=== PATIENT | female | born 1985 | race Caucasian/White ===

== ENCOUNTER 2019-03-06 22:16 | Inpatient (IN) ==
[2019-03-06] MEDS ORDERED: *HR* LORazepam 1 MG TABLET PO PRN (23:38)
[2019-03-06] MEDS ORDERED: traZODone 50 MG TABLET PO PRN (23:38)
[2019-03-06] MEDS ORDERED: Mag Hydrox/Al Hydrox/Simeth 30 ML UDC PO PRN (23:38)
[2019-03-06] MEDS ORDERED: *HR* LORazepam 2 MG/ML VIAL IM PRN (23:38)
[2019-03-06] MEDS ORDERED: Acetaminophen 325 MG TABLET PO PRN (23:38)
[2019-03-06] MEDS ORDERED: Haloperidol Lactate 5 MG/ML VIAL IM PRN (23:38)
[2019-03-06] MEDS ORDERED: MOM Conc 10 ML UD.LIQ PO PRN (23:38)
[2019-03-07] MEDS: Nicotine 14 MG PATCH.TD24 TD SCH (08:44)
[2019-03-07] MEDS: BuPROPion XL (24 HR) 150 MG TABLET PO SCH (11:27)
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
[2019-03-07] MEDS: hydrOXYzine pamoate 25 MG CAPSULE PO PRN (20:45)
[2019-03-08] MEDS: Nicotine 14 MG PATCH.TD24 TD SCH (10:06)
[2019-03-08] MEDS: BuPROPion XL (24 HR) 150 MG TABLET PO SCH (10:06)
--- NOTE | 2019-03-08 14:01 | Psychiatry Progress Note ---
Date of Encounter: 03/08/19 Time of Encounter: 13:58 Subjective Interval history: Ms. De Los Santos was seen this afternoon. She reports that since her admission she is feeling so much better. She denies any further thoughts of suicide ideation. She states that her symptoms probably occurred 2 to not being able to sleep and working overnight the past 3 days, was having issues with her relationship with her boyfriend. She states Wellbutrin is helping her mood. Reports no side effects at this time. Is complaining of hair loss irritability which is likely secondary to her recent hysterectomy currently not on admission replacement therapy. Did give her smoking cessation counseling and informed her that estrogen replacement therapy should be initiated outpatient if she can can stop smoking as smoking and estrogen replacement therapy together can increase risk of blood clots and she is understanding. Reports that nicotine patches are very helpful at this time for her would like to continue with outpatient. She does have a PCP outpatient additionally has a psychiatrist referral to follow outpatient. 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 Review of Systems Constitutional: Denies: fever, chills, weakness Ears, Nose, Throat: Denies: congestion, dysphagia Cardiovascular: Denies: chest pain, palpitations, dyspnea on exertion Respiratory: Denies: cough, dyspnea, wheezes Gastrointestinal: Denies: abdominal pain, nausea, vomiting Integumentary: Denies: rash, lesions Psychiatric: Reports: depression. Denies: suicidal ideation, change in appetite, homicidal ideation Endocrine: Reports: other (Hair loss and irritability) Results - Vital Signs Vital Signs: Temp Pulse Resp BP Pulse Ox 97.6 F 75 18 117/80 98 03/08/19 09:00 03/08/19 09:00 03/08/19 09:00 03/08/19 09:00 03/08/19 09:00 - Labs Labs: Laboratory Results - last 24 hr 03/08/19 04:00 TSH 1.576 Assessment and Plan (1) Depression, major, recurrent, moderate Current visit: Yes Status: Acute Plan: Continue hospitalization, Encourage participation in unit milieu, Group Therapy, Monitor sleep, Monitor appetite Additional Plan: Continue hospitalization and at the time would be safe to discharge home tomorrow. Would benefit from ongoing close follow-up with psychiatrist outpatient. Continue Wellbutrin is helping her depressive symptoms. No longer having difficulty sleeping has a good appetite and oriented. Risks, benefits, side effects, alternatives discussed w/pt: Yes (She restarted her outpatient medication. Paxil on hold for now) Patient agreeable to treatment: Yes Consult Discharge Plan - Plan Referrals: NONE,PCP [Primary Care Provider] - - Attending Attestation I examined this patient and my medical decision-making was reviewed with the Resident Physician. I agree with the documented findings, disposition and treatment plan as described except to the extent set forth below. Patient is pleased with her treatment. She slept better last and wants to continue the Trazodone but as a prn. She is not tired today and is feeling better off the Paxil. She believe's she will be ready to go home tomorrow. She needs to talk to her family to see if they can come get her (doubtful), or if the social media marketing manager can get a ride for her back to [facility]. No side effects of her medications. She will complete outpatient treatment and talk to her PCP about hormone replacement therapy as she is stopping smoking with the nicotine patches here on the unit. Psychiatry Exam - Constitutional Vitals: Temp Pulse Resp BP Pulse Ox 97.6 F 75 18 117/80 98 03/08/19 09:00 03/08/19 09:00 03/08/19 09:00 03/08/19 09:00 03/08/19 09:00 - Musculoskeletal Gait: normal - Psychiatric Patient Orientation: Yes Person, Yes Time, Yes Place Level of alertness: Alert Behavior: calm, cooperative Psychomotor activity: Normal Eye Contact: Maintains Eye Contact Mood Description: Euthymic/stable Affect description: congruent with mood Speech Volume: Normal Speech pattern: normal rate, clear, coherent Language & Vocabulary: consistent with education Thought Process: Intact, Goal Oriented Thought Content: Yes Intact, No Suicidal ideation, No Homicidal ideation Perceptual Disturbances: Yes Reacting to internal stimuli Attention Span Ability: Capable of Focused Attention Memory Description: Grossly Intact Patient Reliability: Reliable Historian Fund of knowledge: Yes average Intelligence Estimate: Average Judgment: Fair Insight: Full
[2019-03-08] MEDS: hydrOXYzine pamoate 25 MG CAPSULE PO PRN (20:57)
[2019-03-08] MEDS ORDERED: traZODone 50 MG TABLET PO PRN (21:00)
[2019-03-09] MEDS: BuPROPion XL (24 HR) 150 MG TABLET PO SCH (09:25)
[2019-03-09] MEDS: Nicotine 14 MG PATCH.TD24 TD SCH (09:25)
--- NOTE | 2019-03-09 10:23 | Discharge Summary ---
Date of Encounter: 03/09/19 Time of Encounter: 08:00 Diagnosis - Discharge Diagnosis (1) Depression, major, recurrent, moderate Status: Acute Medications - Discharge Medications Prescriptions: traZODone [TraZODone] 25 mg PO HS PRN #30 tablet PRN Reason: Insomnia Transmission Status: Pending to [facility] hydrOXYzine pamoate [Vistaril] 25 mg PO TID PRN #30 capsule PRN Reason: Anxiety Transmission Status: Pending to [facility] Bupropion HCl [Wellbutrin Xl] 300 mg PO DAILY #15 Amitriptyline [Elavil] 25 mg PO HS 03/07/19 [History] Meloxicam [Mobic] 15 mg PO DAILY 03/07/19 [History] Oxybutynin Chloride [Oxybutynin Chloride ER] 20 mg PO DAILY 03/07/19 [History] Bupropion HCl [Wellbutrin Xl] 300 mg PO DAILY #15 03/09/19 [Rx] hydrOXYzine pamoate [Vistaril] 25 mg PO TID PRN #30 capsule 03/09/19 [Rx] traZODone [TraZODone] 25 mg PO HS PRN #30 tablet 03/09/19 [Rx] Allergy/AdvReac Type Severity Reaction Status Date / Time No Known Allergies Allergy Verified 03/06/19 22:32 Results Procedures and tests throughout hospitalization: Completed Lab Orders Category Date Time Status Thyroid Stimulating Hormone AM 0400 Lab 03/08/19 04:00 Completed Provider Date of admission: 03/06/19 22:16 Primary care physician: PCP NONE Discharging clinician: Hetal Steven Psychiatry Exam - Constitutional Vitals: Temp Pulse Resp BP Pulse Ox 98.7 F 72 18 116/73 96 03/08/19 21:00 03/08/19 21:00 03/08/19 21:00 03/08/19 21:00 03/08/19 21:00 General appearance: age & developmentally appropriate, well-groomed, well- nourished - Musculoskeletal Gait: normal Station: relaxed Strength & Tone: normal for patient - Psychiatric Patient Orientation: Yes Person, Yes Time, Yes Place, Yes Circumstance Level of alertness: Alert Behavior: calm, cooperative Psychomotor activity: Normal Eye Contact: Maintains Eye Contact Mood Description: Euthymic/stable Patient description of mood: Good Affect description: congruent with mood, full range Speech Volume: Normal Speech pattern: normal rate, normal rhythm, normal tone, fluent, spontaneous Language & Vocabulary: consistent with education Thought Process: Linear, Goal Oriented Thought Content: No Suicidal ideation, No Homicidal ideation, No Overt delusions Perceptual Disturbances: No Auditory hallucinations, No Visual hallucinations Attention Span Ability: Capable of Focused Attention Memory Description: Grossly Intact Patient Reliability: Reliable Historian Fund of knowledge: Yes abstraction ability, Yes aware of current events Intelligence Estimate: Average Judgment: Good Insight: Full Hospital Course Hospital course: Ms. Ornelas is a 33 year old female who was admitted from [facility] due to depression. Her Paxil was changed to Wellbutrin. Her mood improved. She was also provided as needed Vistaril for anxiety and trazodone for insomnia.Patient was educated of diagnosis and the risk-benefit side effects of this alternative treatment options and was monitored for responsiveness and side effects. Mood anxiety sleep and appetite interest improved as did future orientation. Self- harm thoughts subsided, thinking cleared, psychosis resolved, and mood stabilized. Patient was able to attend both individual and group therapy sessions as well as meet with the psychiatrist daily and urged to discuss any medication or treatment issues or other concerns. The patient was educated primarily by verbal means about their diagnosis and manifestations in their life. The option for treatment including group and individual therapy programming was offered to the patient in addition to the use of medications with all their potential risks, benefits, and side effects as well as the risks of not taking medication and non-adhereance were discussed with the patient at length. The patient was given the opportunity to ask questions and was noted to participate in the treatment in the planning process. The patient felt ready and eager to be discharged from the inpatient psychiatric unit to continue on with treatment as an outpatient. The patient agreed that is they were safe for this disposition. The patient was considered to be able to participate in informed consent and decision making with respect to medical, legal, and financial issues of the time of discharge. At the time of discharge the patient adamantly denied any concerns for lethality including suicidal or homicidal thoughts ideations or plans and was future oriented toward ongoing mental health care, medical follow-up and sobriety. Time spent discussing smoking cessation with patient: 3 to 10 minutes Does patient wish to continue nicotine replacement upon disc: Yes (will talk with primary care physician.) - Time Spent with Patient Total time spent providing and/or coordinating discharge services: 20 Less than 30 minutes Specific discharge activities: Interval history reviewed. Available labs r halwed . Psychotherapy provided. Patient had an opportunity to ask questions and address concerns. Patient was in agreement with the treatment plan. The risks benefits and side effects of medications were discussed with the patient, including alternatives and treatment. The patient was educated on the abstaining from any alcohol or illicit substances, following up with all scheduled appointments, and taking all medications as prescribed. Assessment and Plan - Patient/Caregiver Discharge Instructions Activity: resume usual activities as tolerated Diet: regular diet Additional Instructions: Continue current medications. Follow up with outpatient mental health. Encourage continued therapy in a group or individual setting. The patient was discharged to home. - Follow up Plan Follow up with: NONE,PCP [Primary Care Provider] - Functional capacity at discharge: independent ambulation Overall status at discharge: Stable Disposition: Home, Self-Care Quality - Multiple Antipsychotics Patient discharged on 2 or more antipsychotic medications: No Procedures - Procedures Procedures: Medication Management, Crisis Stabilization, Supportive Therapy, Group Therapy, Psychoeducational Therapy
[2019-03-09 10:40] VITALS: BP 115/76
[2019-03-09] MEDS: hydrOXYzine pamoate 25 MG CAPSULE PO PRN (16:30)
== END 2019-03-09 19:10 | disposition home or self-care (01) | DRG 751 ==
LOC: 1ANU 22:16 → SUATTDRO 22:16
PROVIDERS: ADMIT Psychiatry & Neurology Psychiatry; ATTEND Psychiatry & Neurology Psychiatry